=== PATIENT | male | born 1990 | race Caucasian/White ===

== ENCOUNTER 2016-06-14 10:35 | Emergency (ER) | payer OTHER, MEDICAID ==
[~2016-06-14] VITALS: Ht 182.9 cm; Wt 72.6 kg
[2016-06-14 10:43] VITALS: BP 125/75
--- NOTE | 2016-06-14 10:50 | NUR ---
Patient ambulated to bed 05.
--- NOTE | 2016-06-14 10:55 | NUR ---
PT PRESENTS TO ER W/C/O N/V/D X2 DAYS. PT DENIES ANY OTHER MEDICAL HX. SKIN IS PINK/WARM/DRY; AAOX4 WITH EVEN AND STEADY GAIT; LUNGS CLEAR BL; HR EVEN AND REGULAR; PT DENIES ANY FEVER, CP, SOB, OR COUGH AT THIS TIME; PATIENT STATES PAIN OF 7/10 AT THIS TIME; VSS; PATIENT POSITIONED FOR COMFORT; HOB ELEVATED; BEDRAILS UP X2; BED DOWN. ER MD MADE AWARE OF PT STATUS.
--- NOTE | 2016-06-14 10:57 | NUR ---
Dr. Banks evaluating patient at bedside.
--- NOTE | 2016-06-14 10:58 | NUR ---
Lizbeth richter in [facility] - 06/14/16 at [address] Banks evaluating patient at bedside.
[2016-06-14] MEDS ORDERED: NACL 0.9% 1,000 ML IV ONE (11:00)
[2016-06-14] MEDS ORDERED: ONDANSETRON 4 MG/2 ML VIAL IVP ONE (11:00)
[2016-06-14] MEDS ORDERED: KETOROLAC 30 MG/ML VIAL IVP ONE (11:00)
[2016-06-14 12:02] VITALS: BP 117/63
--- NOTE | 2016-06-14 12:02 | NUR ---
Patient discharged with v/s stable. Written and verbal after care instructions given and explained.Patient alert, oriented and verbalized understanding of instructions. Ambulatory with steady gait. All questions addressed prior to discharge. ID band removed. Patient advised to follow up with PMD. Rx of ZOFRAN given. Patient educated on indication of medication including possible reaction and side effects. Opportunity to ask questions provided and answered.
== END 2016-06-14 12:02 | disposition home or self-care (01) ==
LOC: MED 10:35
DX: R11.2 Nausea with vomiting, unspecified (principal); R10.84 Generalized abdominal pain; R50.9 Fever, unspecified
CPT/HCPCS: 96361; 96374; 96375; 99284; J1885; J2405; J7030